=== PATIENT | female | born 1965 | race Two or more races ===

== ENCOUNTER 2024-10-28 12:06 | Emergency (ER) | payer MEDICAID, SELFPAY ==
[2024-10-28 12:39] VITALS: BP 147/92; PULSE 104; RESP 18; TEMP 37.3; O2SAT 96; BMI 29.2
[2024-10-28] MEDS: IBUPROFEN TAB 600 MG TABLET PO (13:17)
[2024-10-28 13:37] LABS: Strep A Rapid Negative (Negative)
--- NOTE | 2024-10-28 13:56 | PD.EDURI ---
Upper Respiratory Inf. RME/HPI General Chief Complaint: Flu Like Symptoms Stated Complaint: body aches x4 days, very tired Time Seen by Provider: 10/28/24 12:34 Arrival date/time: 10/28/24 12:06 59-year-old female presents emergency department complains of generalized bodyaches and sore throat ongoing x 4 days Limitations: no limitations Related Data Home Medications ?Medication ?Instructions ?Recorded ?Confirmed azelastine 0.05 % eye drops 1 drp ophthalmic (eye) BID 12/27/22 12/27/22 carboxymethylcellulose sodium 1 % drp ophthalmic (eye) 12/27/22 eye liquid gel drops losartan 100 mg tablet (Cozaar) 100 mg PO QDAY 12/27/22 07/15/23 Previous Rx's ?Medication ?Instructions ?Recorded simethicone 80 mg chewable tablet 80 mg PO QDAY PRN abdominal 07/16/23 distention #30 tabs cyclobenzaprine 10 mg tablet 10 mg PO TID #14 tabs 07/07/24 ibuprofen 600 mg tablet 600 mg PO Q8H PRN fever or pain 07/07/24 #20 tabs amoxicillin 875 mg-potassium 1 tab PO BID 7 days #14 tabs 10/28/24 clavulanate 125 mg tablet ibuprofen 600 mg tablet 600 mg PO Q6H #30 tabs 10/28/24 Allergies Allergy/AdvReac Type Severity Reaction Status Date / Time hydrocodone [From [place]] Allergy Severe Fainting Verified 10/28/24 12:08 Review of Systems Review of Systems Systems Reviewed: All systems reviewed, normal except as documented Constitutional Constitutional: Reports system reviewed and no additional complaints, except as documented, Denies fever(s) and Reports headache(s) Eyes Eyes: Reports system reviewed and no additional complaints, except as documented and Denies blurry vision ENT Ears, Nose, Mouth, and Throat: Reports system reviewed and no additional complaints, except as documented, Reports headache(s), Reports nasal congestion, Reports nasal discharge and Reports sore throat Cardiovascular Cardiovascular: Reports system reviewed and no additional complaints, except as documented, Denies chest pain and Denies dyspnea Respiratory Respiratory: Reports system reviewed and no additional complaints, except as documented, Denies chest congestion, Denies cough and Denies dyspnea Gastrointestinal Gastrointestinal: Reports system reviewed and no additional complaints, except as documented and Denies abdominal pain Integumentary/Breasts Skin/Breast: Reports system reviewed and no additional complaints, except as documented and Denies rash Neurologic Neurologic: Reports system reviewed and no additional complaints, except as documented, Reports as per HPI and Reports headache(s) Past Medical History Past Medical History NEUROLOGIC: Negative Neurological Disorders or Seizures CARDIAC: Positive Hypertension; Negative Cardiac Disorders or Congestive Heart Failure RESPIRATORY: Negative Chronic Obstructive Pulmonary Disease (COPD) or Asthma GASTROINTESTINAL: Positive Gastrointestinal Disorders, Gall Bladder Disease and Hemorrhoids GENITOURINARY: Negative Renal Disease or Kidney Stones REPRODUCTIVE: Positive Previous Pregnancies MUSCULOSKELETAL: Negative Musculoskeletal Disorders ENDOCRINE: Negative Diabetes Mellitus Type 1 or Diabetes Mellitus Type 2 HEMATOLOGIC: Negative Blood Disorders or Sickle Cell Disease OTHER HISTORY: Positive Hospitalization, Shingles, Chicken Pox, Measles and Mumps; Negative Autoimmune Disease, Blood Transfusions, Blood Transfusion Reaction, Anesthesia Reactions or Cancer Family History FAMILY HISTORY: Positive Family Cardiac Disorders and Family Surgery; Negative Family Psychiatric Problems, Family Respiratory Disorders, Family Gastrointestinal Problems, Family Cancer or Family Anesthesia Reaction Surgical History SURGICAL: Positive Section Social History SMOKING STATUS: Never smoker ED Exam General Limitations: Present no limitations General appearance: Present alert and in no apparent distress Head Head exam: Present atraumatic, normocephalic and normal inspection Eye Eye exam: Present normal appearance, PERRL and EOMI; Absent conjunctival injection ENT ENT exam: Present normal exam, normal oropharynx and mucous membranes moist Neck Neck exam: Present normal inspection, full ROM and trachea midline Chest Chest inspection: Present normal inspection and symmetric chest wall rise Respiratory Respiratory exam: Present normal lung sounds bilaterally; Absent respiratory distress, wheezes, stridor or accessory muscle use Cardiovascular Cardiovascular exam: Present regular rate, normal rhythm and normal heart sounds Abdominal Exam Abdominal exam: Present soft and normal bowel sounds; Absent distention, tenderness, guarding, rebound or rigidity Extremities Exam Extremities exam: Present normal inspection and full ROM Back Exam Back exam: Present normal inspection and full ROM Neurological Exam Neurological exam: Present alert, oriented X3 and CN II-XII intact Psychiatric Psychiatric exam: Present normal affect and normal mood Skin Skin exam: Present warm, dry, intact and normal color Course Quality Measures none Orders Category Date Time Status Bedside Influenza A&B Antigen Test NOW Care 10/28/24 12:39 Completed Strep A Rapid Stat Lab 10/28/24 13:16 Completed Ibuprofen Tab [Motrin Tab] Med 10/28/24 12:39 Discontinued 600 mg PO X1 ONE Vital Signs Vital signs: Vital Signs Temperature 99.2 F 10/28/24 12:39 Pulse Rate 104 H 10/28/24 12:39 Respiratory Rate 18 10/28/24 12:39 Blood Pressure 147/92 H 10/28/24 12:39 Pulse Oximetry (%) 96 10/28/24 12:39 Oxygen Delivery Method Room Air 10/28/24 12:39 O2 saturation 96% room air within normal limits Upper Respiratory Infection MDM Narrative MDM Narrative:: 59-year-old female presents emergency department complains of generalized bodyaches and sore throat ongoing x 4 days Patient checked for flu and strep both which are negative Symptoms consistent with URI Patient will treat with course of antibiotics Patient discharged home in no distress to follow-up with primary care doctor in the next 24 to 48 hours and for any worsening symptoms to return to the ER immediately Patient data External records reviewed:: [facility] previous records Clinical information provided by:: patient Social determinants that could affect healthcare access:: none Patient has the following chronic illnesses:: See history How is presenting disease/condition affected by chronic disease/condition?: uneffected by Evaluation data The following diagnostics were reviewed and interpreted by me:: lab results Lab and/or radiology exams considered but not ordered:: Labs obtained Interpretation Summary: Reviewed by me Medications / Prescriptions Medications or Prescriptions considered but not ordered:: Given Medication administrations:: Medication Administration History Discontinued Medications Ibuprofen (Ibuprofen Tab 600 Mg Tablet) 600 mg PO X1 ONE Stop: 10/28/24 12:40 Last Admin: 10/28/24 13:17 Dose: 600 mg Documented By: GM Given Consultations Consultation(s) initiated? (list below): No Diagnosis Upper Respiratory Differential Diagnosis: upper respiratory infection, otitis media, viral infection and pharyngitis Most likely diagnosis given after review of the tests above:: URI Admission Indicated Admission indicated?: not indicated Admission Request Was there a request for admission?: No Disposition Plan Disposition Plan: Discharge Discharge Attestation Discharge Attestation: The patient and all family members were given an opportunity to ask questions and understood the discharge instructions. Discharge instructions specifically effects, indications for sooner follow up or return to the emergency department, and the expected course of current diagnosis. Patient condition: Stable Discharge Plan Plan Patient Disposition: HOME (Self Care) Disposition Comment: Stable Prescriptions/Referrals Prescriptions/Med Rec: New ibuprofen 600 mg tablet 600 mg PO Q6H Qty: 30 0RF amoxicillin-pot clavulanate 875-125 mg tablet 1 tab PO BID 7 Days Qty: 14 0RF No Action azelastine 0.05 % Drops 1 drp OPHTHALMIC (EYE) BID losartan [Cozaar] 100 mg Tablet 100 mg PO QDAY carboxymethylcellulose sodium 1 % Drops, Liquid Gel OPHTHALMIC (EYE) simethicone 80 mg tablet,chewable 80 mg PO QDAY PRN (Reason: abdominal distention) Qty: 30 0RF ibuprofen 600 mg tablet 600 mg PO Q8H PRN (Reason: fever or pain) Qty: 20 0RF cyclobenzaprine 10 mg tablet 10 mg PO TID Qty: 14 0RF Problem List Clinical Impression: URI (upper respiratory infection) Patient/Caregiver Discharge Instructions Education Materials: ED URI, Viral, No Abx (Adult) Additional Instructions: Please follow up with your primary care doctor in the next 24-48hrs for any worsening symptoms return here immediately Print Language: Colombian Stand Alone Forms: Aura Award Info., Patient Portal Info Letter PA/CITY JAILER Supervising Physician PA/CITY JAILER Supervising Physician: Dr abbott
[2024-10-28 14:13] VITALS: BP 145/87; PULSE 89; RESP 17; TEMP 37; O2SAT 97
== END 2024-10-28 14:18 | disposition home or self-care (01) ==
LOC: SERX 14:27
PROVIDERS: Nurse Practitioner Primary Care; Emergency Provider Emergency Medicine; PCP Physician Assistant
DX: J06.9 Acute upper respiratory infection, unspecified (principal)
CPT/HCPCS: 87400; 87651; 99283; A9270

== ENCOUNTER 2024-12-25 16:02 | Emergency (ER) | payer MEDICAID, SELFPAY ==
[2024-12-25 16:03] VITALS: BMI 31.2
[2024-12-25 16:11] VITALS: BP 154/96; PULSE 100; RESP 20; TEMP 36.9; O2SAT 98
[2024-12-25] MEDS: FLUORESCEIN SOD 1 MG STRP RIGHT EYE (16:40)
[2024-12-25] MEDS: TETRACAINE PF OP SOL 0.5% 4 ML DRPETTE 1 DROP RIGHT EYE (16:40)
[2024-12-25] MEDS: ACETAMINOPHEN 500 MG TABLET 1000 MG PO (16:41)
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
== END 2024-12-25 17:50 | disposition home or self-care (01) ==
PROVIDERS: Emergency Provider Emergency Medicine; PCP Family Medicine
DX: T26.01XA Burn of right eyelid and periocular area, initial encounter (principal); S05.01XA Injury of conjunctiva and corneal abrasion without foreign body, right eye, initial encounter; X08.8XXA Exposure to other specified smoke, fire and flames, initial encounter
CPT/HCPCS: 99283; A9270

== ENCOUNTER 2025-03-30 12:24 | Emergency (ER) | payer MEDICAID, SELFPAY ==
[2025-03-30 13:07] VITALS: BP 163/85; PULSE 78; RESP 18; TEMP 37.2; O2SAT 97; BMI 30.7
--- NOTE | 2025-03-30 13:11 | XR_ITS ---
Examination: Pelvic ultrasound, transabdominal, complete Technique: Transabdominal ultrasound of the pelvis performed using grayscale imaging Date and time of exam: March 30, 2025 1333 hours INDICATIONS: Right pelvic pain radiating to the right leg this week FINDINGS: Uterus 7.7 cm endometrial stripe 0.5 cm No uterine mass Right ovary 4.6 cm arterial flow, 3.9 x 3.7 cm cyst Left ovary 1.8 cm arterial flow IMPRESSION: Right ovarian simple cyst, 3.9 x 3.6 x 3.7 cm
--- NOTE | 2025-03-30 13:11 | XR_ITS ---
Examination: CT abdomen and pelvis without contrast. Coronal 3-D reconstructions. Sagittal 2-D reconstructions. Date and time of exam:March 30, 2025 1513 hours Comparison July 15, 2023 INDICATIONS: Lower abdominal pain bilateral flank pain beginning one week ago CTDI: vol (mGy): 8.69 DLP: (mGycm): 480 Technique: Axial images of the abdomen have been obtained, 3 mm slice thickness Intravenous contrast material has not been administered. Low dose protocols were performed. One or more of the following dose reduction techniques were used; automated exposure control, adjustment of the mA and/or KV according to patient size, use of iterative reconstruction technique. Findings: No focal liver or splenic lesion No gallstones No pancreatic or adrenal mass No renal or ureteral calculi, no hydronephrosis Aorta normal size No pericecal inflammatory change No bowel obstruction or diverticulitis 4 cm right ovarian cyst Urinary bladder wall is thickened up to 4 mm Moderate osteopenia IMPRESSION: No renal or ureteral calculi, no hydronephrosis No CT findings of appendicitis bowel obstruction or diverticulitis Cystitis pattern 4 cm right pelvic cyst
[2025-03-30 14:28] LABS: Collection Type, Urine Clean Catch; Squamous Epithelial Cell,Urine 0 /hpf (0-5)
[2025-03-30 14:30] LABS: Basophils # (Auto) 0.1 Thou/mm3 (0.0-0.2); Basophils % (Auto) 1 % (0-2.5); Eosinophils # (Auto) 0.1 Thou/mm3 (0.0-0.5); Eosinophils % (Auto) 1 % (0-10); Hematocrit 37.3 % (36.0-46.0); Hemoglobin 12.7 g/dL (12.0-16.0); Immature Granulocytes % (Auto) 0 % (0-0); Immature Granulocytes Auto 0.03 Thou/mm3 (0.00-0.00); Lymphocytes # (Auto) 2.7 Thou/mm3 (1.0-4.8); Lymphocytes % (Auto) 28 % (10-50); Mean Corpuscular Hemoglobin 29.4 pg (25.0-35.0); Mean Corpuscular Volume 86 fL (80-100); Monocytes # (Auto) 0.7 Thou/mm3 (0.0-0.8); Monocytes % (Auto) 7 % (0-12); Neutrophils # (Auto) 6.2 Thou/mm3 (1.8-7.7); Neutrophils % (Auto) 63 % (37-80); Nucleated Red Blood Cell % 0 /100 WBC (0); Platelet Count 376 Thou/mm3 (140-440); RDW Standard Deviation 40.2 fL (36.4-46.3); Red Blood Count 4.32 Miln/mm3 (4.00-5.20); White Blood Count 9.8 Thou/mm3 (3.6-11.0)
[2025-03-30 14:33] LABS: Bilirubin,Urine Negative (Negative); Blood,Urine Negative (Negative); Clarity,Urine Clear (Clear/Hazy); Color,Urine Colorless (Lt Yel-Yel); Culture Indicated,Urine Not Indicated; Glucose, Urine Negative (Negative); Ketones,Urine Negative (Negative); Leukocyte Esterase,Urine Negative (Negative); Nitrite,Urine Negative (Negative); PH,Urine 7.5 (5.0-7.0); Protein,Urine Negative (Neg - Trace); RBC,Urine 2 /hpf (0-3); Specific Gravity,Urine 1.012 (1.001-1.035); Urobilinogen,Urine Negative mg/dL (0.0-1.0); WBC,Urine 2 /hpf (0-5)
[2025-03-30 14:51] LABS: Alanine Aminotransferase 18 U/L (10-49); Albumin, Serum 4.6 gm/dL (3.4-4.8); Albumin/Globulin Ratio 2.1 (1.2-2.2); Alkaline Phosphatase 104 U/L (46-116); Anion Gap 7 (7-16); Aspartate Amino Transferase 20 U/L (0-34); BUN/Creatinine Ratio 13 Ratio (12-20); Bilirubin,Total 0.3 mg/dL (0.3-1.2); Blood Urea Nitrogen 10 mg/dL (9-23); Calcium 9.6 mg/dL (8.3-10.6); Calcium (Corrected) 9.6 mg/dL (8.5-10.1); Carbon Dioxide 28.9 mMol/L (20.0-31.0); Chloride 104 mMol/L (98-107); Creatinine (Component) 0.8 mg/dL (0.6-1.3); Estimated Creatinine Clearance 67.8 mL/min (>60); Globulin 2.2 gm/dL (2.3-3.5); Glucose 101 mg/dL (74-106); Lipase 32 U/L (12-53); Osmolality,Calculated 278 (275-295); Sodium 140 mMol/L (136-145); Total Protein 6.8 gm/dL (5.7-8.2); eGFR > 60 See Note
--- NOTE | 2025-03-30 16:18 | EDNOTE_ITS ---
ED Abdominal Pain RME/HPI General Chief Complaint: Abdominal Pain Stated complaint: LOWER ABD PAIN X 1 WK Time seen by provider: 03/30/25 13:06 Arrival date/time: 03/30/25 12:24 59-year-old female presents to the Emergency Department today for complaint of lower abdominal pain and pelvic pain ongoing x 1 week patient reports no fever nausea or vomiting Limitations: no limitations Related Data Home Medications ?Medication ?Instructions ?Recorded ?Confirmed azelastine 0.05 % eye drops 1 drp ophthalmic (eye) BID 12/27/22 12/27/22 carboxymethylcellulose sodium 1 % drp ophthalmic (eye) 12/27/22 eye liquid gel drops losartan 100 mg tablet (Cozaar) 100 mg PO QDAY 3 07/15/23 Previous Rx's ?Medication ?Instructions ?Recorded simethicone 80 mg chewable tablet 80 mg PO QDAY PRN ab dominal 07/16/23 distention #30 tabs cyclobenzaprine 10 mg tablet 10 mg PO TID #14 tabs 10/30 ibuprofen 600 mg tablet 600 mg PO Q8H PRN fever or p ain 07/07/24 #20 tabs ibuprofen 600 mg tablet 600 mg PO Q6H #30 tabs 10/28 bacitracin 500 unit/gram topical 1 applic topical Q8H #28 grams 12/25/24 ointment ibuprofen 800 mg tablet (IBU) 800 mg PO Q8H #20 tabs 0 12/25/24 ibuprofen 600 mg tablet 600 mg PO Q6H #30 tabs 03/30 Allergies Allergy/AdvReac Type Severity Reaction Status Date / Time hydrocodone (From [place]) Allergy Severe Fainting Verified 03/30/25 12:31 Review of Systems Review of Systems Systems Reviewed: All systems reviewed, normal except as documented Constitutional Constitutional: Reports system reviewed and no additional complaints, except as documented, Denies fever(s) and Denies headache(s) Eyes Eyes: Reports system reviewed and no additional complaints, except as documented and Denies blurry vision ENT Ears, Nose, Mouth, and Throat: Reports system reviewed and no additional complaints, except as documented, Denies headache(s), Denies nasal congestion and Denies nasal discharge Cardiovascular Cardiovascular: Reports system reviewed and no additional complaints, except as documented, Denies chest pain and Denies dyspnea Respiratory Respiratory: Reports system reviewed and no additional complaints, except as documented, Denies chest congestion, Denies cough and Denies dyspnea Gastrointestinal Gastrointestinal: Reports system reviewed and no additional complaints, except as documented and Reports abdominal pain Genitourinary Genitourinary: Reports system reviewed and no additional complaints, except as documented and Reports pelvic pain Integumentary/Breasts Skin/Breast: Reports system reviewed and no additional complaints, except as documented and Denies rash Neurologic Neurologic: Reports system reviewed and no additional complaints, except as documented, Reports as per HPI and Denies headache(s) Past Medical History Past Medical History NEUROLOGIC: Negative Neurological Disorders or Seizures CARDIAC: Positive Hypertension; Negative Cardiac Disorders or Congestive Heart Failure RESPIRATORY: Negative Chronic Obstructive Pulmonary Disease (COPD) or Asthma GASTROINTESTINAL: Positive Gastrointestinal Disorders, Gall Bladder Disease and Hemorrhoids GENITOURINARY: Negative Renal Disease or Kidney Stones REPRODUCTIVE: Positive Previous Pregnancies MUSCULOSKELETAL: Negative Musculoskeletal Disorders ENDOCRINE: Negative Diabetes Mellitus Type 1 or Diabetes Mellitus Type 2 HEMATOLOGIC: Negative Blood Disorders or Sickle Cell Disease OTHER HISTORY: Positive Hospitalization, Shingles, Chicken Pox, Measles and Mumps; Negative Autoimmune Disease, Blood Transfusions, Blood Transfusion Reaction, Anesthesia Reactions or Cancer Family History FAMILY HISTORY: Positive Family Cardiac Disorders and Family Surgery; Negative Family Psychiatric Problems, Family Respiratory Disorders, Family Gastrointestinal Problems, Family Cancer or Family Anesthesia Reaction Surgical History SURGICAL: Positive Section Social History SMOKING STATUS: Never smoker ED Exam General Limitations: Present no limitations General appearance: Present alert and in no apparent distress Head Head exam: Present atraumatic, normocephalic and normal inspection Eye Eye exam: Present normal appearance, PERRL and EOMI; Absent conjunctival injection ENT ENT exam: Present normal exam, normal oropharynx and mucous membranes moist Neck Neck exam: Present normal inspection, full ROM and trachea midline Chest Chest inspection: Present normal inspection and symmetric chest wall rise Respiratory Respiratory exam: Present normal lung sounds bilaterally Cardiovascular Cardiovascular exam: Present regular rate, normal rhythm and normal heart sounds Abdominal Exam Abdominal exam: Present soft, tenderness (Mild tenderness lower abdomen) and normal bowel sounds; Absent distention, guarding, rebound or rigidity Extremities Exam Extremities exam: Present normal inspection and full ROM Back Exam Back exam: Present normal inspection and full ROM Neurological Exam Neurological exam: Present alert, oriented X3 and CN II-XII intact Psychiatric Psychiatric exam: Present normal affect and normal mood Skin Skin exam: Present warm, dry, intact and normal color Course Quality Measures none Orders Category Date Time Status CT abdomen pelvis wo con Stat Exams 03/30/25 13:11 Completed US pelvic complete Stat Exams 03/30/25 13:11 Completed CBC Stat Lab 03/30/25 14:10 Completed Comprehensive Metabolic Panel Stat Lab 03/30/25 14:10 Completed Lipase Stat Lab 03/30/25 14:10 Completed UA, C/S IF [Urinalysis, C/S if Indicated] Stat Lab 03/30/25 13:50 Completed Vital Signs Vital signs: Vital Signs Temperature 98.9 F 03/30/25 13:07 Pulse Rate 78 03/30/25 13:07 Respiratory Rate 18 03/30/25 13:07 Blood Pressure 163/85 H 03/30/25 13:07 Pulse Oximetry (%) 97 03/30/25 13:07 Oxygen Delivery Method Room Air 03/30/25 13:07 O2 saturation 97% room air within normal limits Abdominal Pain MDM MDM Narrative MDM Narrative:: 59-year-old female presents to the Emergency Department today for complaint of lower abdominal pain and pelvic pain ongoing x 1 week patient reports no fever nausea or vomiting On exam patient well-appearing patient does not appear ill or toxic in no acute distress Lab work and imaging obtained no acute emergent findings noted Patient reports history of ovarian cyst patient is found to have an ovarian cyst and pelvic region I do believe this is the cause of her pain Explained to the patient she has to follow-up with her PCP for referral to [facility] for worsening symptoms return immediately Patient data External records reviewed:: [facility] previous records Clinical information provided by:: patient Social determinants that could affect healthcare access:: none Patient has the following chronic illnesses:: See history How is presenting disease/condition affected by chronic disease/condition?: caused by Evaluation data The following diagnostics were reviewed and interpreted by me:: radiology exam(s) Lab and/or radiology exams considered but not ordered:: Radiology obtain Interpretation Summary: Reviewed by me Medications / Prescriptions Medications or Prescriptions considered but not ordered:: Given Medication administrations:: Given Consultations Consultation(s) initiated? (list below): No Diagnosis Differential diagnosis abdominal pain: abdominal pain, acute appendicitis, calculus of kidney, constipation, diverticulitis and pancreatitis Most likely diagnosis given after review of the tests above:: Ovarian cyst Admission Indicated Admission indicated?: not indicated Admission Request Was there a request for admission?: No Disposition Plan Disposition Plan: Discharge Discharge Attestation Discharge Attestation: The patient and all family members were given an opportunity to ask questions and understood the discharge instructions. Discharge instructions specifically effects, indications for sooner follow up or return to the emergency department, and the expected course of current diagnosis. Patient condition: Stable Discharge Plan Plan Patient Disposition: HOME (Self Care) Discharge Disposition comment: Stable Prescriptions/Referrals Prescriptions/Med Rec: New ibuprofen 600 mg tablet 600 mg PO Q6H Qty: 30 0RF No Action azelastine 0.05 % Drops 1 drp OPHTHALMIC (EYE) BID losartan [Cozaar] 100 mg Tablet 100 mg PO QDAY carboxymethylcellulose sodium 1 % Drops, Liquid Gel OPHTHALMIC (EYE) simethicone 80 mg tablet,chewable 80 mg PO QDAY PRN (Reason: abdominal distention) Qty: 30 0RF ibuprofen [IBU] 800 mg tablet 800 mg PO Q8H Qty: 20 0RF bacitracin 500 unit/gram ointment 1 applic topical Q8H Qty: 28 0RF ibuprofen 600 mg tablet 600 mg PO Q8H PRN (Reason: fever or pain) Qty: 20 0RF cyclobenzaprine 10 mg tablet 10 mg PO TID Qty: 14 0RF ibuprofen 600 mg tablet 600 mg PO Q6H Qty: 30 0RF Referrals: No Primary/Family,Physician [Primary Care Provider] - In 1 week Problem List Clinical Impression: Ovarian cyst Patient/Caregiver Discharge Instructions Education Materials: Ovarian Cysts Additional Instructions: Please follow up with your primary care doctor in the next 24-48hrs for any worsening symptoms return here immediately Print Language: Anguillan Stand Alone Forms: [facility] Award Info., Patient Portal Info Letter PA/FURNACE DOOR [employer]ENDER Supervising Physician PA/[employer]NA[employer] DO[employer] TEND[employer] Supervising Physician: Dr. Ruiz
== END 2025-03-30 16:32 | disposition home or self-care (01) ==
PROVIDERS: Nurse Practitioner Primary Care; Emergency Provider Family Medicine
DX: N83.291 Other ovarian cyst, right side (principal)
CPT/HCPCS: 36415; 74176; 76856; 80053; 81001; 83690; 85025; 99284

== ENCOUNTER 2025-07-13 13:12 | Emergency (ER) | payer MEDICAID, SELFPAY ==
[2025-07-13 13:23] VITALS: BP 172/97; PULSE 81; RESP 20; TEMP 37.2; O2SAT 96; BMI 29.0
--- NOTE | 2025-07-13 13:31 | EKG_ITS ---
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
--- NOTE | 2025-07-13 13:31 | XR_ITS ---
EXAMINATION: PA lateral chest 2 views TECHNIQUE: Upright PA lateral chest 2 views Date and time: July 13, 2025, 1353 hours, comparison July 15, 2023 INDICATIONS: Chest pain beginning 2 days ago. FINDINGS: No significant cardiac enlargement Minor prominence pulmonary vasculature. No lobar pneumonia or pulmonary edema. Mild kyphosis dorsal spine IMPRESSION: No pneumonia or pulmonary edema
--- NOTE | 2025-07-13 13:32 | EDNOTE_ITS ---
<Statement entered by Henna Beltran MD - 07/13/25 15:59> As co-signing physician, I was present and available for consult prn. I concur with the plan and care as documented by the midlevel provider. ED Chest Pain RME/HPI General Chief Complaint: General Adult/Misc Complain Stated Complaint: PAIN IN L) BUTTOCKS GOING DOWN L) LEG Time Seen by Provider: 07/13/25 13:32 Source: patient Arrival date/time: 07/13/25 13:12 60-year-old female with no known medical history presents to the emergency room with a chief complaint of pain that starts in her left buttocks and goes and radiates down her left leg. Patient is also stating that she has some chest pain x 2 days Mode of arrival: ambulatory Limitations: no limitations Related Data Home Medications ?Medication ?Instructions ?Recorded ?Confirmed azelastine 0.05 % eye drops 1 drp ophthalmic (eye) BID 12/27/22 12/27/22 carboxymethylcellulose sodium 1 % drp ophthalmic (eye) 12/27/22 eye liquid gel drops losartan 100 mg tablet (Cozaar) 100 mg PO QDAY 3 07/15/23 Previous Rx's ?Medication ?Instructions ?Recorded simethicone 80 mg chewable tablet 80 mg PO QDAY PRN ab dominal 07/16/23 distention #30 tabs cyclobenzaprine 10 mg tablet 10 mg PO TID #14 tabs 10/30 ibuprofen 600 mg tablet 600 mg PO Q8H PRN fever or p ain 07/07/24 #20 tabs ibuprofen 600 mg tablet 600 mg PO Q6H #30 tabs 10/28 bacitracin 500 unit/gram topical 1 applic topical Q8H #28 grams 12/25/24 ointment ibuprofen 800 mg tablet (IBU) 800 mg PO Q8H #20 tabs 0 12/25/24 ibuprofen 600 mg tablet 600 mg PO Q6H #30 tabs 03/30 ibuprofen 600 mg tablet 600 mg PO Q8H PRN fever or p ain 07/13/25 #20 tabs Allergies Allergy/AdvReac Type Severity Reaction Status Date / Time hydrocodone (From [place]) Allergy Severe Fainting Verified 07/13/25 13:19 ED Exam General Limitations: Present no limitations Course Quality Measures none Orders Category Date Time Status EKG (ED ONLY) *Do not use* NOW Care 07/13/25 13:31 Completed EKG (ED Only) Stat Exams 07/13/25 13:31 Draft XR chest 2V Stat Exams 07/13/25 13:31 Completed B-Type Natriuretic Peptide Stat Lab 07/13/25 14:19 Completed CBC Stat Lab 07/13/25 14:19 Completed Comprehensive Metabolic Panel Stat Lab 07/13/25 14:19 Completed Troponin I Stat Lab 07/13/25 14:19 Completed Urinalysis, C/S if Indicated Stat Lab 07/13/25 14:00 Completed Ketorolac Inj [Toradol Inj] Med 07/13/25 13:31 Discontinued 30 mg IM X1 ONE Vital Signs Vital signs: Vital Signs Temperature 99 F 07/13/25 13:23 Pulse Rate 81 07/13/25 13:23 Respiratory Rate 20 07/13/25 13:23 Blood Pressure 172/97 H 07/13/25 13:23 Pulse Oximetry (%) 96 07/13/25 13:23 Oxygen Delivery Method Room Air 07/13/25 13:23 PROCEDURES: EKG Interpretation #1: Date of EK07/13/25 Rate: 76 Interpretation: Reviewed by me EKG Impression: Normal sinus rhythm Chest Pain MDM Narrative MDM Narrative:: 60-year-old female with no known medical history presents to the emergency room with a chief complaint of pain that starts in her left buttocks and goes and radiates down her left leg. Patient is also stating that she has some chest pain x 2 days Patient is hemodynamically stable and in no apparent distress Physical examination shows tenderness and pain to the patient's left hip that radiates down her left leg. The patient has left-sided sciatic notch tenderness with palpation. During evaluation the patient also states she is having some chest pain for the last 2 days. Patient has clear bilateral lung sounds no wheezing or any abnormal breath sounds noted. Patient has a strong and regular rhythm S1 and S2 noted. EKG shows normal sinus rhythm at [address] deviation. Chest x-ray was negative for any pneumonia Patient was discharged and educated to follow-up with primary care provider in the next 24 to 48 hours and return to the emergency room for any evidence of worsening signs or symptoms Patient data External records reviewed:: [facility] previous records Clinical information provided by:: patient Social determinants that could affect healthcare access:: none Patient has the following chronic illnesses:: No chronic illnesses How is presenting disease/condition affected by chronic disease/condition?: no chronic disease Evaluation data The following diagnostics were reviewed and interpreted by me:: lab results and radiology exam(s) Lab and/or radiology exams considered but not ordered:: Labs and radiology exams considered and ordered Interpretation Summary: Chest [id number]: No significant cardiac enlargement Minor prominence pulmonary vasculature. No lobar pneumonia or pulmonary edema. Mild kyphosis dorsal spine IMPRESSION: No pneumonia or pulmonary edema Medications / Prescriptions Medications or Prescriptions considered but not ordered:: Medication given Medication administrations:: Medication Administration History Discontinued Medications Ketorolac Tromethamine (Ketorolac Inj 60 Mg/2 Ml Vial) 30 mg IM X1 ONE Stop: 07/13/25 13:32 Last Admin: 07/13/25 13:41 Dose: 30 mg Documented By: MATTY Medication given Consultations Consultation(s) initiated? (list below): No Diagnosis Chest Pain Differential Diagnosis: stable angina, unstable angina pectoris, atypical chest pain, st elevation myocardial infarction, costochondritis, chest pain and biliary colic Most likely diagnosis given after review of the tests above:: Sciatica/chest pain Admission Indicated Admission indicated?: not indicated Admission Request Was there a request for admission?: No Disposition Plan Disposition Plan: Discharge Discharge Attestation Discharge Attestation: The patient and all family members were given an opportunity to ask questions and understood the discharge instructions. Discharge instructions specifically effects, indications for sooner follow up or return to the emergency department, and the expected course of current diagnosis. Patient condition: Stable Discharge Plan Plan Patient Disposition: HOME (Self Care) Discharge Disposition comment: Stable Prescriptions/Referrals Prescriptions/Med Rec: New ibuprofen 600 mg tablet 600 mg PO Q8H PRN (Reason: fever or pain) Qty: 20 0RF No Action azelastine 0.05 % Drops 1 drp OPHTHALMIC (EYE) BID losartan [Cozaar] 100 mg Tablet 100 mg PO QDAY carboxymethylcellulose sodium 1 % Drops, Liquid Gel OPHTHALMIC (EYE) simethicone 80 mg tablet,chewable 80 mg PO QDAY PRN (Reason: abdominal distention) Qty: 30 0RF ibuprofen [IBU] 800 mg tablet 800 mg PO Q8H Qty: 20 0RF bacitracin 500 unit/gram ointment 1 applic topical Q8H Qty: 28 0RF ibuprofen 600 mg tablet 600 mg PO Q6H Qty: 30 0RF ibuprofen 600 mg tablet 600 mg PO Q8H PRN (Reason: fever or pain) Qty: 20 0RF cyclobenzaprine 10 mg tablet 10 mg PO TID Qty: 14 0RF ibuprofen 600 mg tablet 600 mg PO Q6H Qty: 30 0RF Referrals: Edwar Zhang MD [Primary Care Provider, Family Practice] - In 1 week Problem List Clinical Impression: Sciatica of left side, Chest pain Patient/Caregiver Discharge Instructions Education Materials: ED Chest Pain, Noncardiac, ED Sciatica Additional Instructions: Please follow-up with your primary care provider in the next 24 to 48 hours Your cardiac examination today was within normal limits. Chest x-ray was within normal limits. For any evidence of worsening signs or symptoms return to the emergency room immediately Print Language: Italian Stand Alone Forms: [employer] Award Info., Work/School Release, Patient Portal Info Letter PA/MELLISA Supervising Physician PA/MELLISA Supervising Physician: Dr. BELTRAN
[2025-07-13] MEDS: KETOROLAC INJ 60 MG/2 ML VIAL 30 MG IM (13:41)
[2025-07-13 14:12] LABS: Collection Type, Urine Clean Catch
[2025-07-13 14:18] LABS: Bilirubin,Urine Negative (Negative); Blood,Urine Negative (Negative); Clarity,Urine Clear (Clear/Hazy); Color,Urine Lt-Yellow (Lt Yel-Yel); Culture Indicated,Urine Not Indicated; Glucose, Urine Negative (Negative); Ketones,Urine Negative (Negative); Leukocyte Esterase,Urine Negative (Negative); Nitrite,Urine Negative (Negative); PH,Urine 7.0 (5.0-7.0); Protein,Urine Negative (Neg - Trace); RBC,Urine 3 /hpf (0-3); Specific Gravity,Urine 1.022 (1.001-1.035); Squamous Epithelial Cell,Urine 2 /hpf (0-5); Urobilinogen,Urine Negative mg/dL (0.0-1.0); WBC,Urine 1 /hpf (0-5)
[2025-07-13 14:25] LABS: Basophils # (Auto) 0.1 Thou/mm3 (0.0-0.2); Basophils % (Auto) 1 % (0-2.5); Eosinophils # (Auto) 0.1 Thou/mm3 (0.0-0.5); Eosinophils % (Auto) 1 % (0-10); Hematocrit 37.9 % (36.0-46.0); Hemoglobin 12.9 g/dL (12.0-16.0); Immature Granulocytes Auto 0.05 Thou/mm3 (0.00-0.00); Lymphocytes # (Auto) 3.2 Thou/mm3 (1.0-4.8); Lymphocytes % (Auto) 29 % (10-50); Mean Corpuscular HGB Conc 34.0 g/dl (31.0-37.0); Mean Corpuscular Hemoglobin 28.9 pg (25.0-35.0); Mean Corpuscular Volume 85 fL (80-100); Monocytes # (Auto) 0.8 Thou/mm3 (0.0-0.8); Monocytes % (Auto) 7 % (0-12); Neutrophils # (Auto) 6.8 Thou/mm3 (1.8-7.7); Neutrophils % (Auto) 62 % (37-80); Nucleated Red Blood Cell # 0.00 Thou/mm3 (0.00-0.00); Nucleated Red Blood Cell % 0 /100 WBC (0); Platelet Count 390 Thou/mm3 (140-440); RDW Standard Deviation 38.9 fL (36.4-46.3); Red Blood Count 4.46 Miln/mm3 (4.00-5.20); White Blood Count 10.9 Thou/mm3 (3.6-11.0)
[2025-07-13 14:41] LABS: B-Type Natriuretic Peptide 22 pg/mL (0-100)
[2025-07-13 14:43] LABS: Alanine Aminotransferase 23 U/L (10-49); Albumin, Serum 5.0 gm/dL (3.4-4.8); Albumin/Globulin Ratio 2.3 (1.2-2.2); Alkaline Phosphatase 99 U/L (46-116); Anion Gap 10 (7-16); Aspartate Amino Transferase 22 U/L (0-34); BUN/Creatinine Ratio 25 Ratio (12-20); Bilirubin,Total 0.3 mg/dL (0.3-1.2); Blood Urea Nitrogen 15 mg/dL (9-23); Calcium 9.9 mg/dL (8.3-10.6); Calcium (Corrected) 9.9 mg/dL (8.5-10.1); Carbon Dioxide 26.4 mMol/L (20.0-31.0); Chloride 105 mMol/L (98-107); Creatinine (Component) 0.6 mg/dL (0.6-1.3); Estimated Creatinine Clearance 90.4 mL/min (>60); Globulin 2.2 gm/dL (2.3-3.5); Glucose 90 mg/dL (74-106); Osmolality,Calculated 282 (275-295); Potassium 4.0 mMol/L (3.4-5.1); Sodium 141 mMol/L (136-145); Total Protein 7.2 gm/dL (5.7-8.2); Troponin I < 0.020 ng/mL (0.0-0.045); eGFR > 60 See Note
== END 2025-07-13 18:04 | disposition home or self-care (01) ==
PROVIDERS: Nurse Practitioner Family; Emergency Provider Emergency Medicine; PCP Family Medicine
DX: R07.9 Chest pain, unspecified (principal); M54.32 Sciatica, left side; R94.31 Abnormal electrocardiogram [ECG] [EKG]
CPT/HCPCS: 36415; 71046; 80053; 81001; 83880; 84484; 85025; 93005; 96372; 99283; J1885